=== PATIENT | female | born 1975 | race Caucasian/White ===

== ENCOUNTER 2017-10-14 16:17 | Emergency (ER) | payer OTHER ==
[~2017-10-14] VITALS: Ht 165.1 cm; Wt 108.9 kg
[~2017-10-14 16:17] MED LIST: ABILIFY; ACETAMINOPHEN-1 EAC1 PO; ACID CONTROL20 MG PO; AMARYL4 MG PO; AMBIEN 5 MG TABL5 M1 PO; ANASPAZ0.125 MG SL; CARAFATE 1 GM TA1 G1 PO; CELEXA40 MG PO; CIPROFLOXACIN500 M1 PO; COMPAZINE10 MG PO; COMPAZINE5 MG PO; DEMEROL50 MG PO; DIPHENHYDRAMINE25 M3 PO; ESCITALOPRAM OX20 MG PO; FLAGYL500 MG PO; GABAPENTIN PO; GLIPIZIDE 10 MG10 MG PO; GLUCOPHAGE1000 MG PO; HUMALOG KW200 UNIT/1; HUMALOG KW200 UNIT/1 SUBQ; HYDROCODON-ACE1 EA11 PO; HYDROCODON-ACE1 EAC7 PO; HYDROCODONE-AP1 EAC6 PO; HYDROCODONE-APA1 TA1 PO; KEFLEX500 MG PO; LAMICTAL XR100 MG PO; LANTUS SOL100 UNIT/1 SQ; LANTUS SUBQ; LEVEMIR FL100 UNIT/2 SUBQ; LEVSIN-SL0.125 MG PO; LEXAPRO 10 MG T10 MG; LISINOPRIL20 MG PO; METFORMIN HCL500 MG PO; MIRALAX17 GM PO; MIRAPEX; MIRAPEX 0.250.25 M1 PO; NEURONTIN 300300 M1 PO; NORCO 10-325 T1 EAC1 PO; NORCO 10-325 T1 EACH PO; NORCO 5-325 TA1 EACH PO; NOVOLOG100 UNIT/1 SUBQ; ONDANSETRON HCL4 M2 PO; PERCOCET 5-3251 EACH PO; PERCOCET PO; PHENERGAN 25 MG25 M1 PO; PHENERGAN 25 MG25 M1 RECTAL; PHENERGAN 25 MG25 MG PO; PHENERGAN12.5 M2 PO; PHENERGAN12.5 M2 RC; PHENERGAN50 MG RC; PRAMIPEXOLE D0.25 MG PO; PREDNISONE 10 M10 M1 PO; PRINIVIL40 MG PO; PROMETHAZINE12.5 M1 PO; PROMS25 WY RECTAL; PROTONIX40 M1 PO; PROTONIX40 MG PO; REGLAN 10 MG TA10 MG PO; ROCEPHIN 11 GM/100 M IV; SENNA PO; SEROQUEL XR50 MG; SINGULAIR 10 MG10 M1 PO; TRAMADOL 50 MG50 MG PO; ULTRAM50 MG PO; VANCOCIN 125 M125 M1 PO; VICTOZA0.6 MG/0.1 SUBQ; WELLBUTRIN 100100 MG; ZANTAC 150MG T150 MG PO; ZOFRAN ODT4 MG PO; ZOFRAN4 MG PO; ZOLOFT100 MG PO
[2017-10-14] MEDS ORDERED: BASAGLAR K100 UNIT/1 SUBQ (16:31)
[2017-10-14] MEDS ORDERED: AMITRIPTYLINE H25 M2 PO (16:32)
[2017-10-14] MEDS ORDERED: NOVOLOG100 UNIT/1 SUBQ (16:32)
[2017-10-14] MEDS ORDERED: XARELTO20 MG PO (16:33)
[2017-10-14] MEDS ORDERED: MIRAPEX 0.250.25 M1 PO (16:33)
[2017-10-14 16:54] LABS: HEMATOCRIT 34.4 % (37.0-47.0); HEMOGLOBIN 11.1 gm/dL (12.0-15.0); MCH 25.8 pg (26.0-34.0); MCHC 32.3 g/dL (28.0-37.0); MCV 79.9 fL (80.0-100.0); MPV 8.2 fl. (7.2-11.1); NUCLEATED RBCS 0 /100WBC; PLATELET COUNT* 563 thou/uL (150-400); RDW-CV 18.5 % (10.5-14.5); WBC 19.4 thou/uL (4.0-11.0)
[2017-10-14 17:07] LABS: APTT 29.9 Seconds (25.0-31.3); INR 1.2
[2017-10-14 17:11] LABS: ANION GAP 10 mmol/L (7-16); BUN 10 mg/dL (7-18); CALCIUM 9.4 mg/dL (8.5-10.1); CHLORIDE 102 mmol/L (98-107); CO2 27 mmol/L (21-32); CREATININE 0.8 mg/dL (0.6-1.3); GLUCOSE 136 mg/dL (70-99); POTASSIUM 4.6 mmol/L (3.5-5.1); SODIUM 139 mmol/L (136-145)
[2017-10-14] MEDS ORDERED: AUGMENTIN 875-1 EACH PO (17:27)
[2017-10-14] MEDS ORDERED: NORCO 5-325 TA1 EACH PO (17:27)
[2017-10-14 17:29] LABS: ALBUMIN 3.7 g/dL (3.4-5.0); ALKALINE PHOSPHATASE 102 U/L (46-116); CK-MB MASS < 0.5 ng/mL (<0.5-3.6); LIPASE 318 U/L (73-393); MAGNESIUM 1.6 mg/dL (1.8-2.4); NT-PRO BRAIN NAT PEPTIDE 14 pg/mL (<300); SGOT 64 U/L (15-37); SGPT 64 U/L (30-65); TOTAL BILIRUBIN 0.2 mg/dL (<0.1-1.0); TOTAL PROTEIN 8.7 g/dL (6.4-8.2); TROPONIN-I LEVEL <0.06 ng/mL (<0.06)
[2017-10-14 17:46] LABS: ABSOLUTE EOSINOPHILS 0.4 thou/uL (0.0-0.7); ABSOLUTE LYMPHOCYTES 3.3 thou/uL (0.8-5.3); ABSOLUTE MONOCYTES 0.2 thou/uL (0.0-1.2); ABSOLUTE NEUTROPHILS 15.5 thou/uL (1.6-8.1); ANISOCYTOSIS 1+; ATYPICAL LYMPHS 4 %; MACROCYTES 1+; METAMYELOCYTES 2 %; MYELOCYTES 2 %
[2017-10-14 17:50] VITALS: BP 117/68
--- NOTE | 2017-10-15 11:49 | EKG ---
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1975 Requested By: Micky Loja Order Number: [id number] MD: Myke Day Measurements Intervals [place] Rate: 114 P: 74 RI: 188 QRS: -19 QRSD: 99 T: 35 QT: 315 QTc: 434 Interpretive Statements Sinus tachycardia Inferior infarct, old Baseline wander in lead(s) V1 Compared to ECG 05/04/2017 19:43:47 Sinus rhythm no longer present Myocardial infarct finding still present Electronically Signed On 10-15-2017 11:49:17 DIRECTOR OF RELIGIOUS ACTIVITIES by Myke Day [email or web address] <ELECTRONICALLY SIGNED> By: Myke Day MD, [facility] 10/15/17 1149 1623 1623 Myke Day MD, [facility] /EPI
== END 2017-10-14 17:50 | disposition home or self-care (01) ==
LOC: M.ERS 16:17
PROVIDERS: Family Medicine
DX: R07.9 Chest pain, unspecified (principal); E11.9 Type 2 diabetes mellitus without complications; F32.9 Major depressive disorder, single episode, unspecified; Z86.711 Personal history of pulmonary embolism; Z90.49 Acquired absence of other specified parts of digestive tract; Z98.890 Other specified postprocedural states; Z79.4 Long term (current) use of insulin; Z88.8 Allergy status to other drugs, medicaments and biological substances

== ENCOUNTER 2020-07-21 18:56 | Emergency (ER) | payer OTHER ==
[~2020-07-21] VITALS: Ht 165.1 cm; Wt 108.9 kg
[~2020-07-21 18:56] MED LIST changes: +AMITRIPTYLINE H25 M2 PO; +ASPIR 8181 MG PO; +AUGMENTIN 875-1 EACH PO; +BASAGLAR K100 UNIT/1 SUBQ; +GLEEVEC400 MG PO; +LEVEMIR SUBQ; -WELLBUTRIN 100100 MG; +WELLBUTRIN 100100 MG PO; +XARELTO20 MG PO
[2020-07-21 19:48] LABS: URINE BILIRUBIN NEGATIVE (Negative); URINE BLOOD NEGATIVE (Negative); URINE CLARITY CLEAR; URINE COLOR YELLOW; URINE GLUCOSE-RANDOM NEGATIVE (Negative); URINE KETONES NEGATIVE (Negative); URINE LEUKOCYTES-REFLEX NEGATIVE (Negative); URINE NITRITE-REFLEX NEGATIVE (Negative); URINE PROTEIN NEGATIVE (Negative); URINE UROBILINOGEN 0.2 E.U./dl (0.2-1.0)
[2020-07-21 20:16] LABS: ABSOLUTE EOSINOPHILS 0.1 thou/uL (0.0-0.7); ABSOLUTE LYMPHOCYTES 2.6 thou/uL (0.8-5.3); ABSOLUTE MONOCYTES 0.4 thou/uL (0.0-1.2); ABSOLUTE NEUTROPHILS 3.8 thou/uL (1.6-8.1); BASOPHILS 0.3 %; EOSINOPHILS 2.1 %; HEMOGLOBIN 10.8 gm/dL (12.0-15.0); LYMPHOCYTES 37.2 %; MCH 31.5 pg (26.0-34.0); MCHC 33.9 g/dL (28.0-37.0); MCV 92.9 fL (80.0-100.0); MONOCYTES 5.3 %; MPV 8.3 fl. (7.2-11.1); NUCLEATED RBCS 0 /100WBC; PLATELET COUNT* 115 thou/uL (150-400); POLYS 55.1 %; RBC 3.44 mil/uL (4.20-5.00); RDW-CV 14.8 % (10.5-14.5); WBC 6.9 thou/uL (4.0-11.0)
[2020-07-21 20:26] LABS: CALCIUM 9.2 mg/dL (8.5-10.1); CREATININE 0.9 mg/dL (0.6-1.3); POTASSIUM 4.5 mmol/L (3.5-5.1)
[2020-07-21 20:36] LABS: ALBUMIN 3.8 g/dL (3.4-5.0); TOTAL BILIRUBIN 0.3 mg/dL (<0.1-1.0); TOTAL PROTEIN 8.7 g/dL (6.4-8.2)
[2020-07-21] MEDS ORDERED: NORCO 5-325 TA1 EAC2 PO (21:42)
[2020-07-21 22:05] VITALS: BP 130/86
--- NOTE | 2020-07-22 10:49 | EKG ---
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1975 Requested By: Mary Pineda Order Number: [id number] MD: Beto Pendleton Measurements Intervals [place] Rate: 92 P: 66 OR: 169 QRS: 8 QRSD: 102 T: 26 QT: 345 QTc: 427 Interpretive Statements Sinus rhythm Abnormal inferior Q waves Baseline wander in lead(s) I,V3,V6 Compared to ECG 10/30/2018 19:24:41 Inferior Q waves persist Sinus tachycardia no longer present Electronically Signed On 07-22-2020 10:49:28 ELECTRODE TURNER AND FINISHER by Beto Pendleton [email or web address] <ELECTRONICALLY SIGNED> By: Beto Pendleton MD, FACC 07/22/20 1049 12 12 Beto Pendleton MD, FAC /EPI
== END 2020-07-21 22:06 | disposition home or self-care (01) ==
LOC: M.ERS 18:56
PROVIDERS: Nurse Practitioner Family
DX: K42.9 Umbilical hernia without obstruction or gangrene (principal); E11.9 Type 2 diabetes mellitus without complications; Z88.8 Allergy status to other drugs, medicaments and biological substances; Z90.49 Acquired absence of other specified parts of digestive tract; Z98.51 Tubal ligation status; Z98.890 Other specified postprocedural states; Z86.711 Personal history of pulmonary embolism; Z79.4 Long term (current) use of insulin

== ENCOUNTER 2020-08-27 17:55 | Emergency (ER) | payer MEDICARE ==
[~2020-08-27] VITALS: Ht 165.1 cm; Wt 108.9 kg
[~2020-08-27 17:55] MED LIST changes: +NORCO 5-325 TA1 EAC2 PO
[2020-08-27 18:15] LABS: URINE BILIRUBIN NEGATIVE (Negative); URINE BLOOD NEGATIVE (Negative); URINE CLARITY CLEAR; URINE COLOR YELLOW; URINE GLUCOSE-RANDOM NEGATIVE (Negative); URINE KETONES TRACE (Negative); URINE LEUKOCYTES NEGATIVE (Negative); URINE NITRITE NEGATIVE (Negative); URINE PROTEIN NEGATIVE (Negative); URINE SPECIFIC GRAVITY >= 1.030 (1.005-1.030); URINE UROBILINOGEN 0.2 E.U./dl (0.2-1.0)
[2020-08-27 18:38] LABS: CALCIUM 9.1 mg/dL (8.5-10.1); POTASSIUM 4.2 mmol/L (3.5-5.1)
[2020-08-27 18:39] LABS: ABSOLUTE EOSINOPHILS 0.2 thou/uL (0.0-0.7); ABSOLUTE MONOCYTES 0.5 thou/uL (0.0-1.2); ABSOLUTE NEUTROPHILS 5.1 thou/uL (1.6-8.1); BASOPHILS 0.3 %; EOSINOPHILS 2.3 %; HEMATOCRIT 31.4 % (37.0-47.0); HEMOGLOBIN 10.5 gm/dL (12.0-15.0); LYMPHOCYTES 33.6 %; MCHC 33.6 g/dL (28.0-37.0); MCV 92.1 fL (80.0-100.0); MONOCYTES 5.6 %; MPV 8.4 fl. (7.2-11.1); NUCLEATED RBCS 0 /100WBC; PLATELET COUNT* 104 thou/uL (150-400); POLYS 58.2 %; RDW-CV 15.2 % (10.5-14.5); WBC 8.8 thou/uL (4.0-11.0)
[2020-08-27 18:43] LABS: ALBUMIN 3.6 g/dL (3.4-5.0); TOTAL BILIRUBIN 0.2 mg/dL (<0.1-1.0); TOTAL PROTEIN 8.1 g/dL (6.4-8.2)
[2020-08-27] MEDS ORDERED: HYDROCODON-ACE1 EAC8 PO (21:51)
[2020-08-27 21:56] VITALS: BP 100/52
== END 2020-08-27 21:59 | disposition home or self-care (01) ==
LOC: M.ERS 17:55
PROVIDERS: Physician Assistant
DX: R10.11 Right upper quadrant pain (principal); E11.9 Type 2 diabetes mellitus without complications; Z88.1 Allergy status to other antibiotic agents; Z88.8 Allergy status to other drugs, medicaments and biological substances; Z90.49 Acquired absence of other specified parts of digestive tract; Z98.51 Tubal ligation status; Z86.711 Personal history of pulmonary embolism; Z79.4 Long term (current) use of insulin

== ENCOUNTER 2020-11-09 10:51 | Emergency (ER) | payer MEDICARE ==
[~2020-11-09] VITALS: Ht 165.1 cm; Wt 113.4 kg
[~2020-11-09 10:51] MED LIST changes: +HYDROCODON-ACE1 EAC8 PO
[2020-11-09 11:21] LABS: URINE BILIRUBIN NEGATIVE (Negative); URINE BLOOD NEGATIVE (Negative); URINE CLARITY CLEAR; URINE COLOR YELLOW; URINE GLUCOSE-RANDOM NEGATIVE (Negative); URINE KETONES NEGATIVE (Negative); URINE LEUKOCYTES NEGATIVE (Negative); URINE NITRITE NEGATIVE (Negative); URINE PROTEIN NEGATIVE (Negative); URINE SPECIFIC GRAVITY <= 1.005 (1.005-1.030); URINE UROBILINOGEN 0.2 E.U./dl (0.2-1.0)
[2020-11-09 11:36] LABS: ABSOLUTE BASOPHILS 0.1 thou/uL (0.0-0.2); ABSOLUTE EOSINOPHILS 0.2 thou/uL (0.0-0.7); ABSOLUTE LYMPHOCYTES 3.1 thou/uL (0.8-5.3); ABSOLUTE MONOCYTES 0.4 thou/uL (0.0-1.2); ABSOLUTE NEUTROPHILS 4.2 thou/uL (1.6-8.1); EOSINOPHILS 2.3 %; HEMATOCRIT 32.7 % (37.0-47.0); HEMOGLOBIN 11.1 gm/dL (12.0-15.0); LYMPHOCYTES 38.6 %; MCH 31.7 pg (26.0-34.0); MCHC 33.9 g/dL (28.0-37.0); MCV 93.6 fL (80.0-100.0); MONOCYTES 5.6 %; MPV 8.9 fl. (7.2-11.1); NUCLEATED RBCS 0 /100WBC; PLATELET COUNT* 130 thou/uL (150-400); POLYS 52.5 %; RBC 3.49 mil/uL (4.20-5.00); RDW-CV 14.5 % (10.5-14.5)
[2020-11-09 12:14] VITALS: BP 105/58
--- NOTE | 2020-11-09 16:19 | EKG ---
[place] [address] ELECTROCARDIOGRAM REPORT Name: KIKE LOBO Room: 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[facility] : 1975 Requested By: Elan Mena Order Number: [id number] MD: Joseph Feliz Measurements Intervals [place] Rate: 91 P: 69 CO: 174 QRS: -15 QRSD: 107 T: 20 QT: 356 QTc: 439 Interpretive Statements Sinus rhythm Inferior infarct, old Consider anterior infarct Compared to ECG 07/21/2020 20:13:27 no change Electronically Signed On 11-09-2020 16:19:17 RF MANAGER by Joseph Feliz [email or web address] <ELECTRONICALLY SIGNED> By: Joseph Feliz MD, [facility] 11/09/20 1619 1132 1132 Joseph Feliz MD, [facility] /EPI
== END 2020-11-09 12:15 | disposition home or self-care (01) ==
LOC: M.ERS 10:51
PROVIDERS: Emergency Medicine
DX: R10.11 Right upper quadrant pain (principal); R11.0 Nausea; Z88.1 Allergy status to other antibiotic agents; Z88.8 Allergy status to other drugs, medicaments and biological substances; Z90.49 Acquired absence of other specified parts of digestive tract; Z98.51 Tubal ligation status; Z98.890 Other specified postprocedural states; E11.9 Type 2 diabetes mellitus without complications; Z86.711 Personal history of pulmonary embolism